=== PATIENT | female | born 1975 | race Two or more races ===

== ENCOUNTER 2024-10-26 17:43 | Emergency (ER) | payer MEDICAID, OTHER ==
[~2024-10-26] VITALS: Ht 170.2 cm; Wt 88.2 kg
[2024-10-26 18:35] VITALS: BP 117/65; PULSE 93; RESP 16; TEMP 97.9; O2SAT 97
[2024-10-26] MEDS ORDERED: ACETAMINOPHEN 325 MG TAB PO ONE (20:15)
--- NOTE | 2024-10-26 20:52 | DVH ---
CLINICAL INDICATION: left forearm pain TECHNIQUE: XY L FOREARM XRAY Comparison: None FINDINGS: No osseous or joint abnormality with no fracture or dislocation. Joint spaces are normal. IMPRESSION: No abnormality demonstrated.
--- NOTE | 2024-10-26 21:55 | DVH ---
EXAM: CT CERVICAL WITHOUT CONTRAST HISTORY: neck pain COMPARISON: None CTDIvol 19.48 mGy, DLP 528.33 mGy*cm. TECHNIQUE: Multiple axial CT images of the spine were obtained using bone algorithm. Axial and coron al reformatting was done. Bone and soft tissue windows were reviewed. FINDINGS: No prevertebral soft tissue abnormality noted. Mild straightening of the normal cervical lordosis; th e alignment is otherwise unremarkable with no listhesis. The cervical bodies appear unremarkable with no evidence of fracture or dislocation. No spinal canal or neural foraminal stenosis. Incidentally noted is a dominant nonspecific low-density nodule measuring up to approximately 3 cm in the right lobe of the thyroid gland which can be evaluated with elective thyroid ultrasound. IMPRESSION: No abnormality demonstrated in the cervical spine.
[2024-10-26] MEDS ORDERED: CYCL-837 PO (22:02)
[2024-10-26] MEDS ORDERED: ACET500T58 PO (22:02)
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
== END 2024-10-26 22:35 | disposition home or self-care (01) ==
LOC: ER 17:47
DX: S16.1XXA Strain of muscle, fascia and tendon at neck level, initial encounter (principal); S50.12XA Contusion of left forearm, initial encounter; Z86.2 Personal history of diseases of the blood and blood-forming organs and certain disorders involving the immune mechanism; Z98.890 Other specified postprocedural states; Z79.899 Other long term (current) drug therapy; V49.9XXA Car occupant (driver) (passenger) injured in unspecified traffic accident, initial encounter; Y93.89 Activity, other specified; Y92.488 Other paved roadways as the place of occurrence of the external cause; Y99.8 Other external cause status
CPT/HCPCS: 72125; 73090

== ENCOUNTER 2024-10-31 09:31 | Emergency (ER) | payer MEDICAID ==
[~2024-10-31] VITALS: Ht 170.2 cm; Wt 92.9 kg
[~2024-10-31 09:31] MED LIST: ACET500T58 PO; CYCL-837 PO
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
[2024-10-31 10:32] LABS: Hematocrit 32.0 % (36.0-46.0); Hemoglobin 10.0 g/dL (12.2-16.2); Mean Corpuscular Hemoglobin 22.9 pg (28.0-32.0); Mean Corpuscular Volume 73.5 fL (80.0-100.0); Nucleated Red Blood Cells % 0.1 %
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
--- NOTE | 2024-10-31 11:32 | ECG ---
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
[2024-10-31 11:42] VITALS: BP 118/78; PULSE 78; RESP 16; TEMP 98.7; O2SAT 99
== END 2024-10-31 11:45 | disposition home or self-care (01) ==
LOC: ER 09:31
DX: G90.9 Disorder of the autonomic nervous system, unspecified (principal)
CPT/HCPCS: 36415; 70450; 82947; 82962; 84484; 85025; 93005